=== PATIENT | female | born 2000 | race American Indian/Alaskan Native ===

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

== ENCOUNTER 2023-02-01 15:00 | Emergency (ER) | payer MEDICAID ==
[2023-02-01 15:12] VITALS: BP 151/93; PULSE 92
[2023-02-01] MEDS ORDERED: Ketorolac 30 MG/ML SDV IM ONE (15:40)
[2023-02-01] MEDS ORDERED: Acetaminophen/oxyCODONE 325-5 MG Tab PO ONE (15:41)
[2023-02-01] MEDS ORDERED: cefTRIAXone 1 GM Vial IM ONE (15:45)
[2023-02-01] MEDS ORDERED: cefTRIAXone 1 GM, Lidocaine 1% 2.1 ML IM ONE ×2 (16:15)
== END 2023-02-01 16:34 | disposition home or self-care (01) ==
LOC: JP.ED 15:00
DX: K04.7 Periapical abscess without sinus (principal); Z88.0 Allergy status to penicillin; Z79.899 Other long term (current) drug therapy; Z90.49 Acquired absence of other specified parts of digestive tract
CPT/HCPCS: 36415; 85025; 86140; 96372; 99283; A9270; J0696; J1885